=== PATIENT | female | born 1985 | race Hispanic/Latino ===

== ENCOUNTER 2024-04-15 16:16 | Emergency (ER) | payer BC ==
[~2024-04-15] VITALS: Ht 157.5 cm; Wt 79.4 kg
--- NOTE | 2024-04-15 16:28 | ERN ---
ED Note History of Present Illness Stated Complaint: ABD PAIN Chief Complaint: Abdominal Pain Time Seen by MD: 16:21 Dictation: PATIENT IS A 38-YEAR-OLD FEMALE HERE WITH HER WITH COMPLAINTS OF HAVING FEVER AND CHILLS THAT STARTED THIS MORNING. IN ADDITION SHE STATES SHE HAS HAD ABDOMINAL CRAMPING NAUSEA VOMITING WITH DIARRHEA ONSET FOR FOUR DAYS. NO CHANGE IN URINATION STATES SHE DOES NOT HAVE A GALLBLADDER ACCEPT IT HURTS LIKE THAT ALL MY RIGHT UPPER QUADRANT. SHE IS HERE VISITING FROM [place]. NO LOCAL DOCTOR IN [facility] Allergies: Coded Allergies: No Known Drug Allergies (Unverified Allergy, Unknown, 04/15/24) Home Meds Active Scripts Dicyclomine HCl (Bentyl) 20 Mg Tab, 20 MG PO Q6HPRN PRN for ABDOMINAL PAIN/CRAMPING, #30 TAB Prov:MARJORIE MEAD [employer]EL[employer] SALES REPRESENTATIVE 04/15/24 Metronidazole (Metronidazole) 500 Mg Tablet, 1 TAB PO TID for 7 Days, #21 TAB 0 Refills Prov:MARJORIE MEAD [employer]EL[employer] SALES REPRESENTATIVE 04/15/24 Past Medical History Past Medical History: No Pertinent History Surgical History: None PSYCH History: no pertinent psych hx History: Not Applicable RN Note Reviewed/Agreed w/PFSH: Yes Review of System Dictation CONSTITUTIONAL: NEGATIVE EXCEPT FOR HPI FEVER CHILLS HEAD/FACE: NEGATIVE EXCEPT FOR HPI EENT: NEGATIVE EXCEPT FOR HPI RESPIRATORY: NEGATIVE EXCEPT FOR HPI GASTROINTESTINAL/ABDOMINAL: NEGATIVE EXCEPT FOR HPI ABDOMINAL CRAMPING WITH NAUSEA VOMITING AND DIARRHEA GENITOURINARY: NEGATIVE EXCEPT FOR HPI MUSCULOSKELETAL: NEGATIVE EXCEPT FOR HPI INTEGUMENTARY: NEGATIVE EXCEPT FOR HPI NEUROLOGICAL/PSYCH: NEGATIVE EXCEPT FOR HPI HEMATOLOGIC/LYMPHATIC: NEGATIVE EXCEPT FOR HPI ALL SYSTEMS NEGATIVE, EXCEPT NOTED ABOVE. 13 POINT REVIEW OF SYSTEMS ASSESSED AND ALL NEGATIVE EXCEPT FOR ABOVE. Initial Vital Sign VS Vital Signs Date Time Temp Pulse Resp B/P (MAP) Pulse Ox O2 Delivery O2 Flow Rate FiO2 04/15/24 16:21 100.4 116 18 127/83 98 04/15/24 16:48 Room Air* 0 21 Physical Exam Dictation VITAL SIGNS REVIEWED GENERAL APPEARANCE: ALERT, ORIENTED X 3, MILD ACUTE DISTRESS, WELL DEVELOPED, NOURISHED. HEAD AND FACE: NON-TRAUMATIC. EYES: PERRL, PINK CONJUNCTIVAS, EYELID NO TRAUMA, ANTERIOR CHAMBER WITH ARCUS SENILIS. EARS: PINNAS INTACT AND NO SIGNS OF TRAUMA OR ERYTHEMA EAR CANALS CLEAR AND NO DISCHARGE TM NO ERYTHEMA NOSE: NO DISCHARGE, NO BLEEDING. OROPHARYNX: MOUTH NORMAL, TONGUE PINK, PHARYNX CLEAR,NO ERYTHEMA, TONSILS NO EXUDATES, NO ABSCESSES NOTED, MUCOUS MEMBRANE MOIST NECK: SUPPLE, NON-TENDER, NO THYROMEGALY, NO MASSES, NO JVD, NO BRUITS BREAST:DEFERRED CHEST:NO TENDERNESS, NO CREPITUS, NO PARADOXICAL MOVEMENT, NO RETRACTIONS LUNGS:CLEAR, WELL-VENTILATED, SYMMETRIC, NO RALES, NO WHEEZING, NO RHONCHI, NO STRIDOR, GOOD BREATH SOUNDS BILATERALLY HEART: REGULAR RATE, REGULAR RHYTHM, NO MURMUR, NO GALLOPS VASCULAR: NO PERIPHERAL EDEMA, ABDOMEN: SOFT, POSITIVE BOWEL SOUNDS, NONDISTENDED, NO GUARDING, DIFFUSE ABDOMINAL TENDERNESS NO FOCAL TENDER NO REBOUND, NO MASSES NO HEPATOMEGALY, NO SPLENOMEGALY, NO ANTHONY'S SIGN, NO HERNIAS. RECTAL: DEFERRED GENITAL: DEFERRED NEUROLOGICAL: NORMAL SPEECH, MOTOR FUNCTION INTACT, SENSORY FUNCTION INTACT MUSCULOSKELETAL: NECK NONTENDER, FULL RANGE OF MOTION, BACK NONTENDER, FULL RANGE OF MOTION, EXTREMITIES: NONTENDER, FULL RANGE OF MOTION SKIN: COLOR PINK, DRY, NO TURGOR, NO RASH, NO LACERATIONS, NO ABRASIONS, NO CONTUSIONS. LYMPHATIC: DEFERRED Results (Laboratory/Radiology) Laboratory/Radiology [facility] 165 REASON: RIGHT LOWER QUADRANT PAIN [id number] WBCS ORDERING PHYSICIAN: MARJORIE MEAD NP PROCEDURE: ABD PEL W - CT ABDOMEN/PELVIS W/CONTRAST CT ABDOMEN/PELVIS W/CONTRAST HISTORY: Pain COMPARISON: None TECHNIQUE: Multiple sequential axial images of the abdomen and pelvis were obtained from the dome of the diaphragm through symphysis pubis. Patient was given 100 cc of Omnipaque through intravenous route. Oral contrast was not given. FINDINGS: No pleural effusion is seen bilaterally. There is no evidence of parenchymal disease or pulmonary nodule of the visualized lower lungs. Degenerative changes of the thoracolumbar spine are present. The heart is not enlarged. Liver measures 22 cm. Postcholecystectomy changes are seen. A small hiatal hernia is seen. There is mild small bowel dilatation with fluid-filled. Small periumbilical hernia is seen with fat content. There is mesenteric fat stranding is seen in the right lower abdomen. There is right colon wall thickening. Radiopaque ingested material is seen in the right colon. Findings may be related to acute sinusitis versus inflammatory bowel disease versus colitis. Clinical correlation is recommended. The liver, spleen, adrenal glands and pancreas are unremarkable. There is no evidence of hydronephrosis bilaterally. No evidence of renal stone is seen. Fecal material is seen in the colon. There are normal size retroperitoneal and mesenteric lymph nodes. No ascites is seen. Atherosclerotic changes are present. Pelvic sidewalls are symmetric bilaterally. Bladder is moderately distended with apparent wall thickening. IMPRESSION: 1. There is mild small bowel dilatation with fluid-filled. Small periumbilical hernia is seen with fat content. There is mesenteric fat stranding is seen in the right lower abdomen. There is right colon wall thickening. Radiopaque ingested material is seen in the right colon. Findings may be related to acute sinusitis versus inflammatory bowel disease versus colitis. Clinical correlation is recommended. Labs Reviewed?: Yes ED Course ED Course EIGHTEEN 40, DISCUSSED LABS AND CT FINDINGS WHEN PATIENT. SHE HAD LIVE IN [facility] AND THEY DO NOT WANT TO BE ADMITTED TO THE HOSPITAL. I EXPLAINED TO THEM MY RATIONALE FOR KEEPING HER DUE TO THE COLITIS AND THE [id number] WHITE COUNT HOWEVER THEY INSISTED THEY WANTED TO GO HOME. I TOLD HIM I WOULD START HER ON FLAGYL NOW AND GIVE HER SOMETHING FOR PAIN WE WILL DISCHARGE HER HOME ON CLEAR LIQUID DIET WITH FLAGYL AND BENTYL SHE SAID THEY ARE DRIVING BACK TONIGHT IT CAN SEE THEIR PRIMARY CARE DOCTOR TOMORROW AND [facility]. Medical Decision Making MDM MDM: DIFFERENTIAL DIAGNOSIS: DIVERTICULITIS/APPENDICITIS/UTI/HERNIA/FOOD POISONING/DEHYDRATION/ELECTROLYTE IMBALANCE/SEPSIS RATIONALE: TESTS CONSIDERED AND ORDERED SECONDARY TO SHARED DECISION MAKING INCLUDE: RADIOLOGY/LABS PREVIOUS OUTSIDE RECORDS REVIEWED: OLD ER VISITS. NONE RISK OF COMPLICATION AND/OR MORBIDITY OR MORTALITY OF PATIENT MANAGEMENT: NONE MEDICATIONS-PER MEDICATION RECONCILIATION SEE NURSE'S NOTES NEED FOR HOSPITALIZATION: PATIENT DOES NOT MEET CRITERIA FOR HOSPITALIZATION. PATIENT REFUSED ADMISSION AT THIS TIME, THEY WERE LEAVING FOR [facility], THEIR HOME TONIGHT. NEED FOR EMERGENCY MAJOR/MINOR SURGERY: NO THERE ARE NO SOCIAL CONCERNS WITH THIS PATIENT. PRESCRIPTION DRUG MANAGEMENT BENTYL/FLAGYL PRESCRIPTIONS WILL INCLUDE SYMPTOMATIC CARE PATIENT'S PRIOR EXTERNAL MEDICAL RECORDS FROM OTHER ER VISITS WERE REVIEWED BY ME INDICATED. PRIOR TESTING AND RESULTS FROM PREVIOUS VISITS WERE REVIEWED. PRIOR TESTS WERE TAKEN INTO ACCOUNT WITH MEDICAL DECISION MAKING AND RESOURCE UTILIZATION, INDEPENDENT HISTORIAN/HISTORIANS WERE USED TO OBTAIN COMPLETE MEDICAL HISTORY. I INDEPENDENTLY INTERPRETED THE TEST THAT WERE PERFORMED, RESULTS WERE REVIEWED BY ME AND CONSIDERED FINDINGS ON RADIOLOGY IF ORDERED. MEDICAL MANAGEMENT AND EXAMINATION INTERPRETATION DISCUSSIONS WERE HAD BY ME WITH OTHER QUALIFIED HEALTHCARE PROFESSIONALS INDICATED FOR THE PATIENT'S CARE. DX & DISP Disposition: Discharge Departure Impression: Primary Impression: Acute colitis Additional Impressions: Hypokalemia, Diarrhea, Leukocytosis, SIRS (systemic inflammatory response syndrome) Condition: Stable Scripts Dicyclomine HCl (Bentyl) 20 Mg Tab 20 MG PO Q6HPRN PRN for ABDOMINAL PAIN/CRAMPING, #30 TAB Prov: MARJORIE MEAD [employer]ELTIES SALES REPRESENTATIVE 04/15/24 Metronidazole (Metronidazole) 500 Mg Tablet 1 TAB PO TID for 7 Days, #21 TAB 0 Refills Prov: MARJORIE MEAD [employer]EL[employer]IES SALES REPRESENTATIVE 04/15/24 Additional Instructions: FOLLOW-UP WITH PRIMARY CARE PROVIDER IN 1 TO 2 DAYS. TAKE MEDICATIONS DIRECTED HERE IN THE EMERGENCY ROOM. OKAY TO CONTINUE HOME MEDICATIONS UNLESS OTHERWISE DISCUSSED DURING YOUR VISIT IN THE EMERGENCY ROOM TODAY. RETURN TO YOUR NEAREST EMERGENCY ROOM IF SYMPTOMS WORSEN OR IF THERE IS NO IMPROVEMENT. CALL 911 IF YOU NEED IMMEDIATE ASSISTANCE. TAKE TYLENOL OR MOTRIN [id number] NEEDED AND IF NO CONTRAINDICATIONS ARE PRESENT. INCREASE ORAL HYDRATION. A WOUND CULTURE OR URINE CULTURE WAS ORDERED HERE IN THE EMERGENCY ROOM DEPARTMENT PLEASE FOLLOW-UP WITH PRIMARY CARE PROVIDER AND ADVISE THEM TO GET REPEAT PORTS FROM OUR FACILITY. IF YOU HAD ANY LOREN WRAP/SPLINTS THAT WERE APPLIED HERE, PLEASE DO NOT REMOVE THEM UNTIL YOU SEE YOUR PRIMARY CARE OR SPECIALTY. TAKE FLAGYL DIRECTED UNTIL GONE STARTING TOMORROW. TAKE BENTYL DIRECTED FOR ABDOMINAL PAIN CRAMPING. CLEAR LIQUID DIET ONLY, NO SOLID FOODS UNTIL 04/17/2024. Time of Disposition: 18:44 I have reviewed the case, and I agree with, Diagnosis and Plan I performed a substantive portion of the visit. I have reviewed and personally made and approve the management plan that is documented in the notes by myself with ANN/resident. I acknowledged full responsibility for the patient's management plan. MARJORIE MEAD NP Apr 15, 2024 16:28 CALI LEI DO Apr 29, 2024 06:48
[2024-04-15] MEDS ORDERED: cefTRIAXone 1G VIAL IVPB ONE (16:30)
[2024-04-15 16:47] LABS: BASOPHILS # (AUTO) 0.07 K/uL (0.00-0.20); BASOPHILS % (AUTO) 0.3 % (0.0-5.0); EOSINOPHILS # (AUTO) 0.04 K/uL (0.00-0.70); EOSINOPHILS % (AUTO) 0.2 % (0.0-8.0); HEMATOCRIT 37.6 % (36-48); IMMATURE GRANULOCYTE ABSOLUTE 0.14 K/uL (0-1); LYMPHOCYTES # (AUTO) 3.1 K/uL (1.0-4.8); LYMPHOCYTES % (AUTO) 14.6 % (21.0-51.0); MEAN CORPUSCULAR HEMOGLOBIN 25.8 pg (27.0-33.0); MEAN CORPUSCULAR HGB CONC 32.4 g/dL (32.0-36.0); MEAN CORPUSCULAR VOLUME 79.5 fL (79-99); MONOCYTES # (AUTO) 1.5 K/uL (0.1-1.0); MONOCYTES % (AUTO) 6.9 % (3.0-13.0); NEUTROPHILS # (AUTO) 16.2 K/uL (1.8-7.7); NEUTROPHILS % (AUTO) 77.3 % (40.0-77.0); PLATELET COUNT (AUTO) 395 K/uL (130-400); RED BLOOD CELL COUNT(AUTO) 4.73 MIL/uL (4.00-5.50); RED CELL DISTRIBUTION WIDTH 15.2 % (11.0-15.5)
[2024-04-15 17:00] LABS: CREATININE 0.8 mg/dL (0.5-1.0); POTASSIUM 3.3 mmol/L (3.5-5.1)
[2024-04-15] MEDS: morPHINE 2 MG SYG IVP ONE (17:08)
[2024-04-15] MEDS: ondanSETRON 4MG INJ IVP ONE (17:08)
[2024-04-15 17:12] LABS: APPEARANCE,URINE CLOUDY (CLEAR); BILIRUBIN,URINE NEGATIVE (NEGATIVE); COLOR,URINE YELLOW (YELLOW); GLUCOSE, URINE (UA) NEGATIVE (NEGATIVE); KETONES,URINE 10 mg/dL (NEGATIVE); LEUKOCYTE ESTERASE ,URINE NEGATIVE Leu/uL (NEGATIVE); NITRATE,URINE NEGATIVE (NEGATIVE); OCCULT BLOOD,URINE SMALL (NEGATIVE); PROTEIN,URINE 30 mg/dL (NEGATIVE); UROBILINOGEN,URINE 12 mg/dL (0.2-1.0)
[2024-04-15 17:13] LABS: ADD UA MICROSCOPIC YES
[2024-04-15 17:15] LABS: BACTERIA,URINE RARE /HPF (None Seen); MUCUS,URINE RARE LPF (None Seen); SQUAMOUS EPITHELIAL CELL,UR MANY /HPF (0-2)
[2024-04-15] MEDS: ZOSYN 3.375GM +NS 50ML IVPB SCH (17:18)
[2024-04-15] MEDS ORDERED: IOHEXOL 350 MG/ML 100ML INFUS..BTL IV ONE (17:40)
[2024-04-15] MEDS: PoTASSium BIcarbonate/CIT AC 25 MEQ TABLET.EFF PO ONE (17:56)
--- NOTE | 2024-04-15 18:18 | HMCIMG ---
CT ABDOMEN/PELVIS W/CONTRAST HISTORY: Pain COMPARISON: None TECHNIQUE: Multiple sequential axial images of the abdomen and pelvis were obtained from the dome of the diaphragm through symphysis pubis. Patient was given 100 cc of Omnipaque through intravenous route. Oral contrast was not given. FINDINGS: No pleural effusion is seen bilaterally. There is no evidence of parenchymal disease or pulmonary nodule of the visualized lower lungs. Degenerative changes of the thoracolumbar spine are present. The heart is not enlarged. Liver measures 22 cm. Postcholecystectomy changes are seen. A small hiatal hernia is seen. There is mild small bowel dilatation with fluid-filled. Small periumbilical hernia is seen with fat content. There is mesenteric fat stranding is seen in the right lower abdomen. There is right colon wall thickening. Radiopaque ingested material is seen in the right colon. Findings may be related to acute sinusitis versus inflammatory bowel disease versus colitis. Clinical correlation is recommended. The liver, spleen, adrenal glands and pancreas are unremarkable. There is no evidence of hydronephrosis bilaterally. No evidence of renal stone is seen. Fecal material is seen in the colon. There are normal size retroperitoneal and mesenteric lymph nodes. No ascites is seen. Atherosclerotic changes are present. Pelvic sidewalls are symmetric bilaterally. Bladder is moderately distended with apparent wall thickening. IMPRESSION: 1. There is mild small bowel dilatation with fluid-filled. Small periumbilical hernia is seen with fat content. There is mesenteric fat stranding is seen in the right lower abdomen. There is right colon wall thickening. Radiopaque ingested material is seen in the right colon. Findings may be related to acute sinusitis versus inflammatory bowel disease versus colitis. Clinical correlation is recommended. CT was performed with one or more following dose reduction techniques: automated exposure control, adjustment of the mA and kv according to patient's size, or use of a iterative reconstruction technique.
[2024-04-15] MEDS ORDERED: DICY20TA2 PO (18:45)
[2024-04-15] MEDS ORDERED: METR-172 PO (18:45)
[2024-04-15] MEDS: ketOROlac 30MG VIAL (30MG/ML) IVP SCH (18:50)
[2024-04-15] MEDS: metRONIDazole 500 MG TABLET PO SCH (18:50)
[2024-04-15 18:56] VITALS: BP 123/70; PULSE 76; RESP 16; TEMP 98.8; O2SAT 98
== END 2024-04-15 19:12 | disposition home or self-care (01) ==
LOC: EDH 16:16
DX: K52.9 Noninfective gastroenteritis and colitis, unspecified (principal); E87.6 Hypokalemia; D72.829 Elevated white blood cell count, unspecified; R65.10 Systemic inflammatory response syndrome (SIRS) of non-infectious origin without acute organ dysfunction; Z20.822 Contact with and (suspected) exposure to COVID-19
CPT/HCPCS: 99284; 74177; 96374; 96375; 87426; 80048; 84703; 83690; 85025; 87040 ×2; 83605; 81001; 36415; J2270; J2405; J1885; J2543; Q9967